=== PATIENT | male | born 2000 | race Caucasian/White ===

== ENCOUNTER 2023-08-08 00:47 | Emergency (ER) | payer SELFPAY ==
[2023-08-08] MEDS: Lidocaine 1% with EPINEPHrine 1:100,000 20 ML MDV INJECT ONE (01:13)
[2023-08-08] MEDS: Bacitracin Oint 1 GM U/D Packet TOP ONE (02:02)
== END 2023-08-08 02:08 | disposition home or self-care (01) ==
LOC: JP.ED 00:47
DX: S62.632B Displaced fracture of distal phalanx of right middle finger, initial encounter for open fracture (principal); W31.2XXA Contact with powered woodworking and forming machines, initial encounter; Y93.89 Activity, other specified; Y99.0 Civilian activity done for income or pay
CPT/HCPCS: 12001; 73130-26-RT; 73130-RT; 99283